=== PATIENT | male | born 1960 ===

== ENCOUNTER 2020-08-16 07:46 | Outpatient (CLI) | payer OTHER | END 2020-08-16 08:01 | disposition home or self-care (01) | LOC: SONOGRAMA 07:46 | PROVIDERS: ATTEND Specialist | DX: R97.20 Elevated prostate specific antigen [PSA] (principal) ==

== ENCOUNTER 2022-04-16 07:23 | Outpatient (CLI) | payer OTHER | END 2022-04-16 07:32 | disposition home or self-care (01) | LOC: SONOGRAMA 07:23 | PROVIDERS: ATTEND Specialist | DX: R97.20 Elevated prostate specific antigen [PSA] (principal); N40.3 Nodular prostate with lower urinary tract symptoms ==